=== PATIENT | male | born 1960 | race Caucasian/White ===

== ENCOUNTER 2024-10-02 12:28 | Outpatient (OUT) | payer MEDICARE, SELFPAY ==
--- NOTE | 2024-10-02 12:40 | XR_ITS ---
[address] [address] Patient Name: TORREY GIBSON MRN: [id number] date: 1960 Sex: M Assigned Patient Location: SURGOUT Current Patient Location: [facility] Accession/Order Number: [id number] Exam Date: 10/02/2024 13:58 Report Date: 10/02/2024 13:59 At the request of: CRUZ ESTRELLA MD Procedure: XR chest 2V Plain film chest 2 view HISTORY: Presurgical assessment COMPARISON: None FINDINGS: SUPPORT DEVICES: None POSTSURGICAL CHANGES: Coronary artery stents HEART: Within normal limits PULMONARY FREDDY: Within normal limits MEDIASTINUM: Unremarkable LUNGS AND PLEURA: No acute lung process, pleural effusion or pneumothorax identified. BONY STRUCTURES: Intact ADDITIONAL FINDINGS None XR/XR chest 2V IMPRESSION: No acute process. Impression dictated by: Jaydon Soares M.D.10/02/2024 1:59 PM Dictation Location: [place] [address] Electronically authenticated by: [id number] Y Date: 10/02/2024 13:59
--- NOTE | 2024-10-02 13:23 | P.GSHP_ITS ---
History of Present Illness History of Present Illness Chief complaint: BPH with Obstruction Narrative: Patient presents for presurgical testing. Please see HPI from Dr. Mart dated September 24, 2024. Review of Systems ROS Narrative Please see ROS past from Dr. Mart dated September 24, 2024. [facility] PFS Medical History (Updated 09/30/24 @ 14:37 by Guillermina Lester NP) STEMI (ST elevation myocardial infarction) ?I21.3 - ST elevation (STEMI) myocardial infarction of unspecified site (ICD-10) supervisor intermediates (current) use of antithrombotics/antiplatelets ?Z79.02 - FPC (current) use of antithrombotics/antiplatelets (ICD-10) Ischemic cardiomyopathy ?I25.5 - Ischemic cardiomyopathy (ICD-10) Hypertension ?I10 - Essential (primary) hypertension (ICD-10) Hyperlipidemia ?E78.5 - Hyperlipidemia, unspecified (ICD-10) Myocardial infarction ?I21.9 - Acute myocardial infarction, unspecified (ICD-10) CAD (coronary artery disease) ?I25.10 - Atherosclerotic heart disease of [place] coronary artery without angina pectoris (ICD-10) Seasonal allergic rhinitis ?J30.2 - Other seasonal allergic rhinitis (ICD-10) BPH with obstruction/lower urinary tract symptoms ?N40.1 - Benign prostatic hyperplasia with lower urinary tract symptoms (ICD- 10) ?N13.8 - Other obstructive and reflux uropathy (ICD-10) Surgical History (Updated 09/30/24 @ 14:37 by Guillermina Lester NP) History of cardiac catheterization ?Z98.890 - Other specified postprocedural states (ICD-10) H/O colonoscopy ?Z98.890 - Other specified postprocedural states (ICD-10) H/O cystoscopy ?Z98.890 - Other specified postprocedural states (ICD-10) S/P arterial stent ?Z95.9 - Presence of cardiac and vascular implant and graft, unspecified (ICD-10) Family History (Updated 10/02/24 @ 13:06 by Guillermina Lester NP) Other Family history of heart disease Family history of hypertension Family history of myocardial infarction Family history of stroke Social History (Updated 10/02/24 @ 13:01 by Guillermina Lester NP) Within the past year, how often did you have a drink containing alcohol: never Score interpretation: A score less than 4 is consistent with normal alcohol consumption. Smoking status: Current every day smoker What tobacco products do you use: cigarettes Packs per day: 1 Years smoked: 40 Smoking pack-years: 40.00 Non-prescribed substance use: cannabis (any form) Highest level of school completed/degree received: high school graduate Meds Home Medications and Allergies Home Medications ?Medication ?Instructions ?Recorded ?Confirmed ?Type aspirin 81 mg tablet,delayed 81 mg PO DAILY 10/02/24 10/02/24 History release (Adult Aspirin Regimen) carvedilol 3.125 mg tablet 3.125 mg PO Q12H 10/02/24 10/02/24 History clopidogrel 75 mg tablet 75 mg PO DAILY 10/02/24 10/02/24 History lisinopril 2.5 mg tablet 2.5 mg PO DAILY 10/02/24 10/02/24 History montelukast 10 mg tablet 10 mg PO DAILY 10/02/24 10/02/24 History nitroglycerin 0.4 mg sublingual 0.4 mg sublingual Q5M PRN chest 10/02/24 10/02/24 History tablet pain rosuvastatin 20 mg tablet 20 mg PO DAILY 10/02/24 10/02/24 History tamsulosin 0.4 mg capsule 0.4 mg PO DAILY 10/02/24 10/02/24 History Allergies Allergy/AdvReac Type Severity Reaction Status Date / Time atorvastatin Allergy Unknown Verified 10/02/24 12:55 Iodinated Contrast Media Allergy Unknown Verified 10/02/24 12:55 Exam Narrative Exam Narrative: Constitutional: Awake, alert, comfortable, well-appearing, nontoxic, interactive, vital signs as charted Head: Normocephalic, atraumatic Neck: Supple, normal appearance, normal range of motion, no meningeal signs, no lymphadenopathy Respiratory: No respiratory distress, breath sounds diminished throughout Cardiovascular: Regular rate and rhythm, strong and regular heart tones Abdomen: Nontender, normal bowel sounds, soft, no CVA tenderness Musculoskeletal: Normal gait, no swelling or edema Skin: No rashes or induration, no lesions, only visible skin inspected Neuro: No neurological deficits, normal sensation Psychiatric: Oriented ?3, normal affect Assessment and Plan Assessment and Plan (1) BPH with obstruction/lower urinary tract symptoms: Plan Cystoscopy, TURP scheduled with Dr. Mart October 08, 2024.
[2024-10-02 13:57] LABS: Anion Gap 12.7; BUN Creatinine Ratio 18.7; Carbon Dioxide 26.6 mmol/L (21.0-32.0); Chloride 107 mmol/L (98-107); Estimated GFR (African America >60 (>=60 mL/min/1.73m^2); Estimated GFR (Non-African Ame >60 (>=60 mL/min/1.73m^2); Glucose 100 mg/dL (74-106); Potassium 4.3 mmol/L (3.5-5.1); Sodium 142 mmol/L (136-145)
[2024-10-02 14:03] LABS: Basophils Percent Auto 0.6 % (0.2-2.0); Eosinophils Absolute Auto 0.2 10^3/uL (0.0-0.7); Hematocrit 41.4 % (42.0-54.0); Immature Granulocytes Abs Auto 0.01 10^3/uL (0.00-0.03); Immature Granulocytes Pct Auto 0.1 % (0.0-0.5); Lymphocytes Percent Auto 28.4 % (20.5-60.0); Mean Corpuscular HGB Conc 33.8 g/dL (29.9-35.2); Mean Corpuscular Hemoglobin 30.7 pg (25.9-34.0); Mean Corpuscular Volume 90.8 fL (80.0-94.0); Mean Platelet Volume 11.5 fL (9.5-13.5); Monocytes Absolute Auto 0.7 10^3/uL (0.3-0.8); Monocytes Percent Auto 9.7 % (1.7-12.0); Neutrophils Percent Auto 58.2 % (43.0-75.0); Platelet Count 180 10^3/uL (150-450); Red Blood Count 4.56 10^6/uL (4.70-6.10); Red Cell Distribution Width 13.1 % (11.0-15.0); White Blood Count 6.9 10^3/uL (4.0-11.0)
[2024-10-02 14:10] LABS: INR 0.97; Partial Thromboplastin Time 27.1 sec (22.3-36.2); Prothrombin Time 10.3 sec (9.0-11.6)
== END 2024-10-02 12:29 | disposition home or self-care (01) ==
LOC: PST 12:32
PROVIDERS: Visit Provider Urology
DX: Z01.810 Encounter for preprocedural cardiovascular examination (principal); Z01.812 Encounter for preprocedural laboratory examination; Z01.818 Encounter for other preprocedural examination; N40.1 Benign prostatic hyperplasia with lower urinary tract symptoms
CPT/HCPCS: 71046; 80048; 85025; 85610; 85730; 93005; G0463

== ENCOUNTER 2024-10-08 08:19 | Day surgery (SDC) | payer MEDICARE, SELFPAY ==
[2024-10-02 13:22] VITALS: BP 118/71; PULSE 69; TEMP 36.4; O2SAT 99; BMI 19.7
[2024-10-08] VITALS (14 sets, daily range): BP systolic 112–149; BP diastolic 59–82; PULSE 52–79; TEMP 36.2–36.9; O2SAT 93–100; BMI 19.6
[2024-10-08] MEDS: LACTATED RINGER'S SOLUTION 1,000 ML 50 ML IV ×2 (09:03→11:03)
[2024-10-08] MEDS: LEVOFLOXACIN 500 MG/100 ML-D5W PREMIX 100 MG IV (10:21)
--- NOTE | 2024-10-08 11:37 | P.URON_ITS ---
Urology Surgery Operative Note Operative Note Procedure Date: 10/08/24 Time Out Performed: yes Pre-op Diagnosis: BPH with LUTS refractory to medications Post-op Diagnosis: same as pre-op Procedures performed: 1. Cystoscopy. 2. Transurethral resection of the prostate. Anesthesia: GETA Primary Surgeon: Livan Mart Complications: None Estimated blood loss (mL): 20 Findings: Trilobar obstruction of the prostate and severe bladder damage Specimens: Prostate chips Drains: 22 Fijian three-way coud? Mcallister catheter in the bladder taped to traction and CBI Indications for Procedures: This gentleman has BPH with LUTS refractory to medications. Endoscopically he is obstructed with an extremely high median lobe that nearly coapting anteriorly. He also has severe bladder damage. He is strongly desirous for TURP. He has signed an informed consent after risks were explained. Some of these risks include bleeding, infection, anesthesia, urinary incontinence both temporary and permanent, retrograde ejaculation, erectile dysfunction and possible need for further operations to name a few. Detailed description of Procedure: The patient was brought to the operating room and placed on the operating room table in the supine position. SCDs were placed on the lower extremities and turned on and functioning during the entire case. Timeout was done by all parties in the room. We all agreed upon the patient's identification and the planned procedures for this patient. Genn. anesthesia was then administered. The patient was then repositioned into the modified dorsal lithotomy position. All pressure points were satisfactorily padded. Genitalia were sterilely prepped and draped in usual fashion. I started by passing a 26 Fijian Olympus resectoscope with a standard bipolar loop electrode per urethra and into the bladder. The scope nearly had to be torqued vertically in order to get up and over the exaggerated high median lobe. The ureteral orifices were away from the bladder neck. I started on the median lobe and uniformly resected this down to the bladder neck level. I then resected posteriorly from the bladder neck to the Veru. The left lateral lobe and the right lateral lobe and the anterior tissue were then resected in a similar manner specifically to the capsular level. The bladder neck was opened up at the 5 and 7:00 positions. I then brought the scope back to the apex and open this up. The vaporization/coagulation loop was then used and significant coagulation was done. The Ilich evacuator was used to get all the chips out of the bladder. These were sent for permanent sections. Upon completion with the scope at the apex the bladder neck and prostatic urethr a were now wide open. There was no bleeding. There were no chips remaining in the bladder. The scope was then removed. I then passed a 22 Fijian three-way coud? Mcallister in the bladder. It was manually irrigated with a Dennis syringe thus verifying correct placement. 30 cc of fluid was placed in the balloon. It was taped to traction and CBI was started. It irrigated a light pink color. The anesthetic was then reversed. He was then transferred to a [facility] bed and wheeled to PACU in stable condition. Urinary Catheter Management Urinary Catheter Management 3-way Urethral: Cath placed during this visit: no
[2024-10-08] MEDS: SOLIFENACIN SUCCINATE 10 MG TABLET PO (11:50)
[2024-10-08] MEDS: SODIUM CHLORIDE IRRIG SOLUTION 3,000 ML 3000 ML IRR ×9 (12:41→23:49)
[2024-10-08] MEDS: 0.9 % SODIUM CHLORIDE 1,000 ML 80 ML IV (12:41)
[2024-10-08] MEDS: CARVEDILOL 3.125 MG TABLET PO (20:38)
[2024-10-08] MEDS: CEFAZOLIN SODIUM/DEXTROSE,ISO 1 GM/50 ML PREMIX IV (20:42)
[2024-10-09] VITALS: BP 149/85; PULSE 63; TEMP 36.3; O2SAT 91
[2024-10-09] MEDS: HYDROCODONE/ACET 5-325 MG TABLET 1 TAB PO (00:14)
[2024-10-09] MEDS: 0.9 % SODIUM CHLORIDE 1,000 ML 80 ML IV (01:08)
[2024-10-09] MEDS: CEFAZOLIN SODIUM/DEXTROSE,ISO 1 GM/50 ML PREMIX IV (01:10)
[2024-10-09] MEDS: SODIUM CHLORIDE IRRIG SOLUTION 3,000 ML 3000 ML IRR ×3 (01:10→04:59)
[2024-10-09 03:27] VITALS: BP 138/73; PULSE 71; TEMP 36.6; O2SAT 93
--- NOTE | 2024-10-09 06:25 | PC.NURSE ---
Patient's urine remained watermelon color through night. Darkened up after CBI stopped. Ambulated diaz and tolerated well.
[2024-10-09 06:30] VITALS: BP 102/55; PULSE 66; TEMP 36.6; O2SAT 94
[2024-10-09] MEDS: NON-FORMULARY 1 EACH (Rosuvastatin 20 mg tablet) 20 EACH PO (09:53)
[2024-10-09] MEDS: LISINOPRIL 5 MG TABLET 2.5 MG PO (09:54)
[2024-10-09] MEDS: SOLIFENACIN SUCCINATE 10 MG TABLET PO (09:54)
[2024-10-09] MEDS: CLOPIDOGREL BISULFATE 75 MG TABLET PO (09:54)
[2024-10-09] MEDS: CARVEDILOL 3.125 MG TABLET PO (09:54)
== END 2024-10-09 11:04 | disposition home or self-care (01) ==
LOC: SURGOUT 11:32 → MS 12:20
PROVIDERS: Visit Provider Urology
PROC: (CPT 52601; principal; 2024-10-08 09:40)
DX: N40.1 Benign prostatic hyperplasia with lower urinary tract symptoms (principal); E78.5 Hyperlipidemia, unspecified; I10 Essential (primary) hypertension; I25.10 Atherosclerotic heart disease of native coronary artery without angina pectoris; I25.2 Old myocardial infarction; Z79.01 Long term (current) use of anticoagulants; F17.210 Nicotine dependence, cigarettes, uncomplicated; J30.2 Other seasonal allergic rhinitis; Z95.5 Presence of coronary angioplasty implant and graft
CPT/HCPCS: 52601; 36415; 88305; 96365; 96366; J0690; J1100; J2405; J2704; J3010